=== PATIENT | female | born 1965 | race Caucasian/White ===

== ENCOUNTER 2019-11-26 11:06 | Outpatient (CLI) | payer BC, SELFPAY ==
--- NOTE | ~2019-11-26 | MM_ITS ---
EXAMINATION: MM screening [facility] w josé luis HISTORY: Screening TECHNIQUE: Craniocaudal and mediolateral oblique 3-D tomosynthesis images were obtained and synthetic 2-D images were generated. CAD analysis was submitted and interpreted. COMPARISON: Comparison to multiple prior studies sequentially, with oldest reviewed study dated 10/2011. BREAST PARENCHYMAL COMPOSITION: There are scattered areas of fibroglandular density. FINDINGS: There is no evidence of suspicious mass, calcification, or architectural distortion to sugg est malignancy in either breast. There has been no suspicious interval change. IMPRESSION: 1. No mammographic evidence of malignancy. 2. Recommend routine screening mammography in one year. BI-RADS Category 1: Negative Reviewed, dictated and finalized at location A.
== END 2019-11-26 11:07 | disposition home or self-care (01) ==
LOC: ANHIMG 11:08
PROVIDERS: PCP Family Medicine; Visit Provider Physician Assistant
DX: Z12.31 Encounter for screening mammogram for malignant neoplasm of breast (principal)
CPT/HCPCS: 77063; 77067

== ENCOUNTER 2021-09-14 07:22 | Outpatient (CLI) | payer BC, SELFPAY ==
--- NOTE | ~2021-09-14 | MM_ITS ---
EXAMINATION: MM screening [facility] BI w josé luis HISTORY: Screening TECHNIQUE: Craniocaudal and mediolateral oblique 3-D tomosynthesis images were obtained and synthetic 2-D images were generated. CAD analysis was submitted and interpreted. COMPARISON: Comparison to multiple prior studies sequentially, with oldest reviewed study dated 12/26. BREAST PARENCHYMAL COMPOSITION: There are scattered areas of fibroglandular density. FINDINGS: There is no evidence of suspicious mass, calcification, or architectural distortion to sugg est malignancy in either breast. There has been no suspicious interval change. IMPRESSION: 1. No mammographic evidence of malignancy. 2. Recommend routine screening mammography in one year. BI-RADS Category 1: Negative Reviewed, dictated and finalized at location A.
== END 2021-09-14 07:23 | disposition home or self-care (01) ==
PROVIDERS: PCP Family Medicine; Visit Provider Physician Assistant
DX: Z12.31 Encounter for screening mammogram for malignant neoplasm of breast (principal)
CPT/HCPCS: 77063; 77067

== ENCOUNTER 2023-03-14 11:22 | Outpatient (CLI) | payer BC, SELFPAY ==
--- NOTE | ~2023-03-14 | MM_ITS ---
EXAMINATION: MM screening [facility] BI w josé luis HISTORY: Screening mammogram TECHNIQUE: Craniocaudal and mediolateral oblique 3-D tomosynthesis images were obtained and synthetic 2-D images were generated. CAD analysis was submitted and interpreted. COMPARISON: 09/14/2021, 11/26/2019 bilateral screening mammogram examinations BREAST PARENCHYMAL COMPOSITION: The breasts are almost entirely fatty. FINDINGS: There is no evidence of suspicious mass, calcification, or architectural distortion to sugg est malignancy in either breast. There has been no suspicious interval change. IMPRESSION: 1. No mammographic evidence of malignancy. 2. Recommend routine screening mammography in one year. BI-RADS Category 1: Negative Reviewed, dictated and finalized at location A. KET CUTTER HAND
== END 2023-03-14 11:23 | disposition home or self-care (01) ==
LOC: ANHIMG 11:34
PROVIDERS: PCP Family Medicine; Visit Provider Family Medicine
DX: Z12.31 Encounter for screening mammogram for malignant neoplasm of breast (principal)
CPT/HCPCS: 77063; 77067

== ENCOUNTER 2024-05-18 14:17 | Outpatient (CLI) | payer BC, SELFPAY ==
--- NOTE | ~2024-05-18 | MM_ITS ---
EXAMINATION: MM screening [facility] BI w josé luis HISTORY: Screening TECHNIQUE: Craniocaudal and mediolateral oblique 3-D tomosynthesis images were obtained and synthetic 2-D images were generated. CAD analysis was submitted and interpreted. COMPARISON: 03/14/2023 and dating back to 04/17/2018 BREAST PARENCHYMAL COMPOSITION: There are scattered areas of fibroglandular density. FINDINGS: Punctate calcifications detected bilaterally, stable and benign in appearance, and primaril y dermal in origin. Stable parenchymal pattern without suspicious microcalcifications, architectural distortion, discrete masses or significant asymmetry. IMPRESSION: 1. No mammographic evidence of malignancy. 2. Recommend routine screening mammography in one year. BI-RADS Category 2: Benign finding(s). Reviewed, dictated and finalized at location A.
--- OUTSIDE RECORDS SUMMARY | 2024-05-18 15:30 | XMS_ITS | Clinical Summary ---
Author Organization [facility] Address [facility] [place] [address] Care Team Providers Care Rug Designer Name Role Phone Gissel Jackson DO Primary Care Provider [phone] Allergies No known active allergies Medications amLODIPine 10 MG tablet Take 1 tablet (10 mg total) by mouth daily. 09/12/2019 Active atorvastatin 10 MG tablet Take 1 tablet (10 mg total) by mouth daily. 10/19/2019 Active lisinopril 10 MG tablet Take 1 tablet (10 mg total) by mouth daily. 09/05/2019 Active Cholecalciferol (VITAMIN D3) 50 MCG (1999 UT) TabIndications:t akes a total of 4000 daily Take 1 tablet (2,000 Units total) by mouth daily. Indications : takes a total of 4000 daily Active cetirizine 10 MG tablet Take 1 tablet (10 mg total) by mouth daily. Active Calcium Carbonate Antacid 600 MG Chew Tab Chew 1 tablet by mouth daily. Active metFORMIN 500 MG tablet 07/12/2021 Active Active Problems Problem Noted Date Diagnosed Date Essential hypertension 10/25/2019 Pap test, as part of routine gynecological exami [facility] 10/25/2019 Overview (10/28/2019): Negative for malignancy Immunizations Name Administration Dates Next Due Flublok (Quadrivalent) 12/15/2018 Influenza (Generic) 11/14/2020 Influenza Adult (Generic) 01/07/2018 Tdap (Adacel) 10/25/2019 Family History Medical History Relation Comments Heart Disease Father Cancer Mother Hypertension Mother Relation Status Comments Father Mother Social History Tobacco Use Types Packs/Day Years Used Date Smoking Tobacco: Never Smokeless Tobacco: Never Tobacco Cessation:Counseling Given: No Alcohol Use Standard Drinks/Week Comments Yes 0 (1 standard drink = 0.6 oz pur e alcohol) socially PHQ-2 Answer Date Recorded Patient Health Questionnaire-2 Score 0 04/15/2023 Comments No Sex and Gender Information Value Date Recorded Sex Assigned at Not on file Legal Sex Female 10:33 AM CDT Gender Identity Not on file Sexual Orientation Not on file Last Filed Vital Signs Vital Sign Reading Time Taken Comments Blood Pressure 119/78 04/15/2023 7:52 AM BUGGY OPERATOR Pulse 94 04/15/2023 7:52 AM BUGGY OPERATOR Temperature 37.8 C (100 F) 04/15/2023 7:52 AM BUGGY OPERATOR Respiratory Rate 16 04/15/2023 7:52 AM BUGGY OPERATOR Oxygen Saturation 97% 04/15/2023 7:52 AM BUGGY OPERATOR Inhaled Oxygen Concentration - - Weight 121.3 kg (267 lb 6.4 oz) 04/15/2023 7:52 AM BUGGY OPERATOR Height 165.1 cm (5' 5 ) 04/15/2023 7:52 AM BUGGY OPERATOR Body Mass Index 44.5 04/15/2023 7:52 AM BUGGY OPERATOR Plan of Treatment Health Maintenance Due Date Last Done Comments Hepatitis C 11/11/1983 Hepatitis B Vaccines (1 of 3 - 19+ 3-dose series) 1984 Zoster Vaccines (1 of 2) 11/11/2015 Mammogram Screening 09/15/2023 09/14/2021 COVID-19 Vaccine (4 - 2023-2 5 season) 2023 12/20/2020, 05/26/2020, 04/28/2020 Influenza Adult (#1) 2023 11/14/2020, 12/15/2018, 01/07/2018 PHQ-2 (Physician Latham) 02/24/2024 04/15/2023 Annual Physical 04/15/2024 04/15/2023, 07/24/2021, 10/25/2019 PHQ-2 (Physician Latham) 04/15/2024 04/15/2023 Cervical Cancer Screening Pa p Smear (Age 30 to 64) Every 3 Years 07/24/2024 07/24/2021, 10/25/2019 Cervical Cancer Screening Pa p with HPV Testing (Age 30 to 64) Every 5 Years 07/24/2026 07/24/2021 Cervical Cancer Screening wi th HPV 07/24/2026 Colorectal Cancer Screening Colonoscopy (10 Years) 10/03/2026 10/03/2016 DTaP, Tdap and Td Vaccines ( 2 - Td or Tdap) 10/24/2029 10/25/2019 Meningococcal B Vaccine Aged Out No l onger eligible based on patient's age to complete this topic Meningococcal Vaccine Aged Out No alexey jacque eligible based on patient's age to complete this topic Pneumococcal Vaccine: Pediatrics (0 to 5 Years) and At-Risk Patients (6 to 64 Years) Aged Out No longer eligible b ased on patient's age to complete this topic RSV Immunizations Under 20 Months Aged Out No longer eligible b ased on patient's age to complete this topic Procedures Procedure Name Priority Date/Time Associated Diagnosis Comments MAMMOGRAM GENERIC (SCAN ORDER) 09/14/2021 HUMAN PAPILLOMAVIRUS, HIGH-RISK TYPES Routine 07/24/2021 12:00 PM CDT CYTOPATH CERV/VAG THIN LAYER Routine 07/24/2021 5:02 AM CDT COLONOSCOPY GENERIC (SCAN ORDER) 10/03/2016 from Last 3 Months or Most Recently Relevant to Health Maintenance Results * MAMMOGRAM GENERIC (09/14/2021) Anatomical Region Laterality Modality Other 09/14/2021 Narrative 09/14/2021 Ordered by an unspecified provider. us Documents Scanned SCANNING Final Result * HUMAN PAPILLOMAVIRUS, HIGH-RISK TYPES (07/24/2021 12:00 PM CDT) SPEC DESCRIPTION CERVICAL/END OCERVICAL 07/26/2021 8:03 AM CDT [facility] HPV DNA HIGH RISK NEGATIVE NEGATIVE 07/26/2021 4:04 PM CDT [facility] Comment:SEE CYTOLOGY REPORT 07/24/2021 12:0 0 PM CDT us Elsy WOODWARD PATHOLOGY/CYTOLOGY ORDERABLE S Final Result [facility] [address] [place] [address], * Cytopath Cerv/Vag Thin Layer (07/24/2021 5:02 AM CDT) THIN PREP PAP [facility] [address] [place] [address] Department of Pathology Pathology Report CERVICAL/VAGINAL PAP SMEAR REPORT Name: KWESI PADILLA Age: 9 1965 (Age: 55) Location: [facility] Sex: F Collected Date: 07/24/2021 [facility] #: [id number] Date Received: 07/26/2021 Date Reported: 07/31/2021 Provider: ELSY WOODWARD INTERPRETATION CERVICAL/ENDOCERVI MESSI: SATISFACTORY FOR EVALUATION. ENDOCERVICAL/TRANS FORMATION ZONE COMPONENT PRESENT. NEGATIVE FOR INTRAEPITHELIAL LESION OR MALIGNANCY. NEGATIVE FOR HIGH RISK HPV. The FDA approved Aptima HPV assay is an in vitro nucleic acid amplification test for the qualitative detection of E6/E7 viral messenger RNA (mRNA) from 14 high-risk types of human papillomavirus (HPV) in cervical specimens. The high-risk HPV types detected by the assay include: 16,18,31,33,35,39, 45,51,52,56,58,59, 66, and 68. Electronically Signed Out By KEISHA Swenson (ASCP) CLINICAL HISTORY Z12.4 SCREENING PAP TEST ThinPrep Pap Test with HR HPV testing in patient > 30 years requested. Date of Last Menstrual Period: YEARS Menstrual Status: Regular SPECIMEN SUBMITTED CERVICAL/ENDOCERVI MESSI Specimen Received:1 Thin Prep Vial, Image Assisted Pap (SMD) Please note: The Pap smear is not a diagnostic test. It is a screening test. Negative results on combined screening (Pap test and HPV-DNA) have a high negative predictive value (99.1-100 percent) for cervical cancer. The pap test is not effective in detecting cervical adenocarcinoma. [facility] 07/24/2021 5:02 AM CDT 07/26/2021 5:02 AM CDT Comment:CERVICAL/ENDOCERVICA L Elsy WOODWARD PATHOLOGY/CYTOLOGY ORDERABLE S Final Result [facility] [address] [place] [address], * COLONOSCOPY GENERIC (10/03/2016) 10/03/2016 Narrative 10/03/2016 Ordered by an unspecified provider. us Documents Scanned SCANNING Final Result from Last 3 Months or Most Recently Relevant to Health Maintenance Insurance Care Teams Rug Designer Relationship Specialty Start Date End Date Gissel Jackson DO [address] [place] [address] PCP - General 02/12/23
== END 2024-05-18 14:18 | disposition home or self-care (01) ==
LOC: ANHIMG 14:18
PROVIDERS: PCP Family Medicine; Visit Provider Family Medicine
DX: Z12.31 Encounter for screening mammogram for malignant neoplasm of breast (principal)
CPT/HCPCS: 77063; 77067